=== PATIENT | male | born 1975 | race Caucasian/White ===

== ENCOUNTER → 2017-10-19 | Outpatient (CLI) | payer BC ==
--- NOTE | 2017-10-20 04:18 | MR ---
EXAMINATION TYPE: MR cervical spine wo con DATE OF EXAM: 10/19/2017 COMPARISON: None HISTORY: Neck and arm pain TECHNIQUE: Multiplanar, multisequence images of the cervical spine were acquired. The cervical vertebra have normal alignment. There is no significant disc space narrowing. There is s ome decreased signal in the disks from C2 to C5. There is small posterior disc herniation at C3-4 C4- 5 C5-6 and C6-7. The canal is narrowed the most at C4-5. Canal measures 8.5 mm at C4-5. There is no s ignificant spinal stenosis. Cervical spinal cord has normal signal pattern. Brainstem appears intact. There is no compression fracture. Posterior elements are intact. IMPRESSION: Multilevel mild spondylotic change and small cervical disc herniations as above. No evidence of any s ignificant spinal stenosis.
== END | disposition home or self-care (01) ==
LOC: RADMRIMAIN 15:39
PROVIDERS: ATTEND Internal Medicine
DX: M47.812 Spondylosis without myelopathy or radiculopathy, cervical region (principal); M50.21 Other cervical disc displacement, high cervical region
CPT/HCPCS: 72141

== ENCOUNTER 2020-09-21 18:50 | Emergency (ER) | payer BC ==
[2020-09-21] MEDS ORDERED: HYDROmorphone 1 MG/ML 1 ML SYRINGE IVP STA (19:11)
--- NOTE | 2020-09-21 19:25 | ED ---
Upper Extremity HPI <Aristeo Granda - Last Filed: 09/21/20 20:51> - General Source: patient, RN notes reviewed Mode of arrival: wheelchair Limitations: no limitations <Camilo Gordon - Last Filed: 09/21/20 21:29> - General Chief Complaint: Extremity Injury, Upper Stated Complaint: Fall/left shoulder Time Seen by Provider: 09/21/20 19:05 - History of Present Illness Initial Comments: Quinn is a 45-year-old male that presents to the emergency department complaining of left shoulder pain. He notes that he was in the garage he lost his balance and landed on his left shoulder. He notes only current physician is with his arm raised in his hand resting across the bridge of his nose. He notes that on initial impact his arm went numb but he is regaining sensation at this time. Patient was in moderate amounts pain and stated that if he moves a little bit the pain shot up. Patient did have full sensation and range of motion to passive range of motion in his elbow. She denied any other complaint or issues. She denied any chest pain shortness of breath headache nausea vomiting diarrhea constipation fever fatigue chills. (Camilo Gordon) - Related Data Allergies Allergy/AdvReac Type Severity Reaction Status Date / Time No Known Allergies Allergy Verified 09/21/20 19:01 Review of Systems ROS Other: All systems not noted in ROS Statement are negative. <Aristeo Granda - Last Filed: 09/21/20 20:51> ROS Other: All systems not noted in ROS Statement are negative. <Camilo Gordon - Last Filed: 09/21/20 21:29> ROS Statement: Those systems with pertinent positive or pertinent negative responses have been documented in the HPI. Past Medical History Past Medical History: Hyperlipidemia History of Any Multi-Drug Resistant Organisms: None Reported Past Surgical History: No Surgical Hx Reported Past Psychological History: No Psychological Hx Reported Smoking Status: Never smoker Past Alcohol Use History: Occasional Past Drug Use History: None Reported <Camilo Gordon - Last Filed: 09/21/20 21:29> General Exam Limitations: no limitations General appearance: alert, in no apparent distress Head exam: Present: atraumatic, normocephalic, normal inspection Eye exam: Present: normal appearance, PERRL, EOMI. Absent: scleral icterus, conjunctival injection, periorbital swelling Neck exam: Present: normal inspection Respiratory exam: Present: normal lung sounds bilaterally. Absent: respiratory distress, wheezes, rales, rhonchi, stridor Cardiovascular Exam: Present: regular rate, normal rhythm, normal heart sounds. Absent: systolic murmur, diastolic murmur, rubs, gallop, clicks Extremities exam: Present: normal capillary refill. Absent: tenderness, pedal edema, joint swelling, calf tenderness Left Shoulder Exam: Present: normal inspection, tenderness over AC joint. Absent: full ROM (Secondary to pain. With passive range of motion), tenderness, swelling, abrasion, laceration, ecchymosis, deformity, crepitus, erythema Neurological exam: Present: alert, oriented X3, CN II-XII intact Psychiatric exam: Present: normal affect, normal mood Skin exam: Present: warm, dry, intact, normal color. Absent: rash <Camilo Gordon - Last Filed: 09/21/20 21:29> Course Vital Signs 09/21/20 19:01 Temperature 97.8 F Pulse Rate 75 Respiratory 18 Rate Blood Pressure 93/58 O2 Sat by Pulse 95 Oximetry Procedures - Procedural Sedation Procedural Sedation Start Time: 20:44 Procedural Sedation Stop Time: 20:50 Indications: fracture/dislocation reduction ASA Class: II Mallampati Airway Score: 2 Preparation: fat pressroom worker applied, pulse oximeter, capnometry used, supplemental O2 applied, suction/airway equipment at bedside, IV secured IV Propofol Dose (mgs): 200 Complications: none Interventions: oxygen applied Patient Tolerated Procedure: well <Aristeo Granda - Last Filed: 09/21/20 20:51> Medical Decision Making - Radiology Data Radiology results: report reviewed, image reviewed <Camilo Gordon - Last Filed: 09/21/20 21:29> - Medical Decision Making 45-year-old male complaining of left shoulder pain after falling in the garage. X-ray of the left shoulder, humerus, 1 mg of Dilaudid ordered. Patient he'll reduction well. Sling ordered and put on in room. Case discussed with Dr. Granda, patient can discharge home with follow-up to orthopedist. (Camilo Gordon) - Radiology Data X-ray left shoulder: Dislocation of the left humeral head. Fracture of the glenoid. At least 2 fracture fragments are identified. X-ray: Reduction of previous dislocated left shoulder. (Camilo Gordon) Disposition <Aristeo Granda - Last Filed: 09/21/20 20:51> Is patient prescribed a controlled substance at d/c from ED?: No Time of Disposition: 21:29 <Camilo Gordon - Last Filed: 09/21/20 21:29> Clinical Impression: Dislocation of left shoulder joint, Glenoid fracture of shoulder Disposition: HOME SELF-CARE Condition: Stable Instructions (If sedation given, give patient instructions): Arm Fracture in Adults (ED) Additional Instructions: Please return to the Emergency Department if symptoms worsen or any other concerns. Follow-up with orthopedist tomorrow. Wear sling continually throughout the day. Can take, Motrin as needed for pain control. Referrals: Petra Chowdary MD [Primary Care Provider] - 1-2 days Mckinley Garza DO [Doctor of Osteopathic Medicine] - 1-2 days
--- NOTE | 2020-09-21 20:37 | XR ---
EXAMINATION TYPE: XR shoulder complete LT DATE OF EXAM: 09/21/2020 COMPARISON: None HISTORY: Pain TECHNIQUE: 2 views left shoulder. FINDINGS: There is a dislocation of the humeral head in relation to the glenoid. Posterior glenoid fr acture fragments are noted. Humerus appears intact. IMPRESSION: 1. Dislocation of the left humeral head. 2. Fracture of the glenoid. At least 2 fracture fragments are identified
[2020-09-21] MEDS: PROPOFOL 10 MG/ML 20 ML VIAL IV ONE ×2 (20:45→21:03)
[2020-09-21] MEDS ORDERED: ACET/COD 300 MG/30 MG STARTER PACK 6 TAB BTL PO STA (20:56)
--- NOTE | 2020-09-21 21:26 | XR ---
EXAMINATION TYPE: XR shoulder limited LT DATE OF EXAM: 09/21/2020 COMPARISON: 09/21/2020 earlier exam HISTORY: Dislocation, post reduction TECHNIQUE: AP left shoulder FINDINGS: The humeral head articulates with the glenoid. The glenoid fracture fragments are poorly vi sualized at this time. Acromioclavicular junction remains intact. No new fractures are identified. IMPRESSION: 1. Reduction of previous dislocated left shoulder. 2. Prior glenoid fractures are poorly visualized on this exam. There are no new fractures evident.
[2020-09-21 22:22] VITALS: BP 143/70; PULSE 82; RESP 19; TEMP 98.6
== END 2020-09-21 22:24 | disposition home or self-care (01) ==
LOC: EC 18:50
DX: S43.005A Unspecified dislocation of left shoulder joint, initial encounter (principal); S42.142A Displaced fracture of glenoid cavity of scapula, left shoulder, initial encounter for closed fracture; E78.5 Hyperlipidemia, unspecified; W19.XXXA Unspecified fall, initial encounter; Y92.59 Other trade areas as the place of occurrence of the external cause
CPT/HCPCS: 24505; 96374 ×2; 96375 ×2; 99284 ×2; 23675 ×2; 73030; 73020; L3670; J1170; J2704

== ENCOUNTER → 2020-10-02 | Outpatient (CLI) | payer BC ==
--- NOTE | 2020-10-02 14:01 | CT ---
EXAMINATION TYPE: CT shoulder LT wo con DATE OF EXAM: 10/02/2020 COMPARISON: 11/21/2020 HISTORY: Lt shoulder pain, post dislocation and fx CT DLP: 826.1 mGycm Automated exposure control for dose reduction was used. Contrast: None Technique: Axial images 3 mm thick sections. Reconstructed images in coronal and sagittal plane. Thre e-D reconstructed images are reviewed. FINDINGS: Acromioclavicular junction appears intact. A portion of the clavicle visualized is normal. Acromion i s normal. Subscapularis is intact. Coracoid process is normal. The glenoid is intact. There is a fracture of the anterior humerus. This is nondisplaced. This involves the greater tuberosi ty and superior anterior humerus. Joint spaces preserved. There is some mild elevation of the humeral head in relation to the glenoid. Rotator cuff tear however is not clearly identified. IMPRESSION: 1. SUPERIOR HUMERAL HEAD FRACTURE WITH EXTENSION INTO THE URETER TUBEROSITY. FRACTURE FRAGMENTS APPEA R NONDISPLACED. 2. GLENOID IS INTACT. 3. NO ADDITIONAL OSSEOUS ABNORMALITY.
== END | disposition home or self-care (01) ==
LOC: RADCTMAIN 07:42
PROVIDERS: ATTEND Orthopaedic Surgery
DX: S42.302A Unspecified fracture of shaft of humerus, left arm, initial encounter for closed fracture (principal)